=== PATIENT | female | born 1960 | race African-American/Black ===

== ENCOUNTER 2016-10-14 22:19 | Inpatient (IN) ==
[2016-10-14] MEDS ORDERED: ONDANSETRON 4 MG/2 ML VIAL IV PRN (22:37)
[2016-10-14] MEDS ORDERED: HYDROmorphone 2 MG/1 ML VIAL IV PRN (22:37)
--- NOTE | 2016-10-14 22:47 | Emergency Department Note ---
Medhat York Brittany, am scribing for, and in the presence of, Bety Soliman DO 22:39. Jourdan York Debra, DO, personally performed the services described in this documentation, ascribed by Jennifer Meléndez in my presence, and it is both accurate and complete . Arrival - Arrival Chief Complaint: Abdominal / Flank Pain Stated Complaint: small bowel obstruction ED Nursing Triage Note: abd pain, n/v, small bowel obstruction Mode of Arrival: Stretcher Limitations: No Limitations Source: Patient, RN Notes Reviewed Time Seen by Provider: 10/14/16 22:27 - History of Present Illness HPI Narrative: Patient is a 55 y/o black female presenting to the ED by EMS from [facility] for further evaluation of Small Bowel Obstruction. Patient presented to [facility] with c/o generalized abdominal pain that had been ongoing x4 days. She had some associated nausea and vomiting as well, but denies any respiratory distress, chest pain, or fever/chills. Patient reports history of Caesarean section and Hysterectomy. Patient has no other complaint/pain in the ED. Onset (ago): day(s) (4) Consistency: constant Severity: moderate Severity scale (1-10): 6 Quality: aching Allergies/Adverse Reactions: Allergies Allergy/AdvReac Type Severity Reaction Status Date / Time No Known Allergies Allergy Unverified 08/03/16 07:14 Home Medications: Home Medications Medication Instructions Recorded Confirmed Type Amlodipine Besylate 10 mg PO DAILY 07/19/16 08/03/16 History Gabapentin Cap/Tab [Neurontin 300 mg PO BEDTIME 07/19/16 08/03/16 History Cap/Tab] Levothyroxine Tab [Synthroid Tab] 50 mcg PO DAILY 07/19/16 08/03/16 History Lisinopril 20 mg PO DAILY 07/19/16 08/03/16 History Meloxicam [Mobic] 15 mg PO DAILY 07/19/16 08/03/16 History Methotrexate Tab 15 mg PO Q7DAY 07/19/16 08/03/16 History Omeprazole 20 mg PO DAILY 07/19/16 08/03/16 History predniSONE [PredniSONE] 2.5 mg PO DAILY 07/19/16 08/03/16 History Review of System - Review of System 12 point system: reviewed and no additional remarkable complaints except as stated - Review of System Constitutional: Absent: chills, fever Eyes: Absent: vision change Head/Ears/Nose/Throat: Absent: nasal drainage, sore throat Respiratory: Absent: respiratory distress Cardiovascular: Absent: chest pain, palpitations Gastrointestinal: Present: abdominal pain, nausea, vomiting. Absent: diarrhea, constipation Genitourinary female: Absent: dysuria, frequency, urgency Musculoskeletal: Absent: arm pain, back pain, leg pain, neck pain Skin: Absent: rash Neurological: Absent: headache Psychiatric: Absent: anxiety, depression Medical,Surgical,& Family Hx - Medical History Cardio: History of: Hypertension Neurology: History of: Peripheral Neuropathy (FEET) No history of: Seizures HEENT: History of: Eye Problem (GLASSES), Dental Problems (FULL SET) Endocrine: History of: Thyroid Disorder Rheumatology: History of;: Rheumatoid Arthritis Respiratory: History of: Respiratory Problems (FLU VAC-YES; PNEU VAC- YES. ALLERGY AND SINUS DRAINAGE) Gastrointestinal: History of: GERD Hematology: History of: Sickle Cell Disease (TRAIT) - Surgical History HEENT Surgeries: Surgical HX of: Thyroid Surgery (2003) Abdominal Surgeries: Surgical HX of: Colonoscopy (2016) Reproductive Surgeries: Surgical HX of;: Section (X1), Hysterectomy - Social History Smoking Status: Never smoker Frequency of Alcohol Use: None Type of Drug Use: None Exam Vital Signs: Vital Signs Temperature 98 F 10/14/16 22:20 Pulse Rate 88 10/14/16 22:20 Respiratory Rate 16 10/14/16 22:20 Blood Pressure 112/81 10/14/16 22:20 O2 Sat by Pulse Oximetry 99 10/14/16 22:20 - General General appearance: alert, in no apparent distress - Head Head exam: Present: atraumatic, normocephalic, normal inspection - Eye Eye exam: Present: normal appearance, PERRL, EOMI - ENT ENT exam: Present: normal oropharynx, TM's normal bilaterally, other (NG tube present with yellow serous fluid draining) - Neck Neck exam: Present: normal inspection, full ROM, trachea midline - Chest Chest inspection: Present: normal inspection, symmetric chest wall rise - Respiratory Respiratory exam: Present: normal lung sounds bilaterally - Cardiovascular Cardiovascular exam: Present: regular rate, normal rhythm, normal heart sounds - Abdominal Exam Abdominal exam: Present: soft, normal bowel sounds, incision (large incisional scar to the abdomen) - Extremities Exam Extremities exam: Present: normal inspection - Back Exam Back exam: Present: normal inspection - Neurological Exam Neurological exam: Present: alert, oriented X3, CN II-XII intact. Absent: motor sensory deficit - Psychiatric Psychiatric exam: Present: normal affect, normal mood - Skin Skin exam: Present: warm, dry Disposition Clinical Impression: Small bowel obstruction Case discussed with: patient Disposition: Still a Patient Condition: Stable Time of Disposition: 22:47
--- NOTE | 2016-10-14 23:56 | Hospitalist History & Physical ---
Assessment and Plan (1) Thrombocytopenia Status: Acute Assessment and plan: Patient has history of chronic hepatitis C. Could explain the thrombocytopenia. Nothing else to do at this point patient will probably be revised to of counseling for possibility of treatment of hep C if she has not hardly tolerated. That should be done as an outpatient. Current Visit: Yes (2) Microcytic anemia Status: Acute Assessment and plan: I suspect iron deficiency but hereditary spherocytosis can also give you a low the low MCV. Check iron indices. Examined the peripheral smear and CBC. Current Visit: Yes (3) Small bowel obstruction Status: Acute Assessment and plan: All indices are showing that at this point is not a critical issue. Chances that she may have a transition site. Patient has an NG tube will be left to Goo suction. Repeat a KUB in the morning if there is a suggestion of obstruction indefinitely our surgical consultation will take care of it. Surgical consult is put on the chart. Current Visit: Yes History of Present Illness Chief complaint: Abdominal distention with pain especially in the flank on the left side History of present illness: Ms. Paris is a 55 year old female presenting to the ED by EMS from [facility] for further evaluation of Small Bowel Obstruction. Patient presented to [facility] with c/o generalized abdominal pain that had been ongoing x4 days. She had some associated nausea and vomiting as well, but denies any respiratory distress, chest pain, or fever/chills. Patient reports history of Caesarean section and Hysterectomy. She says she has had abdominal obstruction in the past of the subsequent day his gentleman is an removal part of her gut. She did have an ostomy which is since been reversed. She had had a history of hysterectomy as in the past most likely with subsequent adhesae and retroperitoniae. Home Medications Medication Instructions Recorded Confirmed Type Amlodipine Besylate 10 mg PO DAILY 07/19/16 08/03/16 History Gabapentin Cap/Tab [Neurontin 300 mg PO BEDTIME 07/19/16 08/03/16 History Cap/Tab] Levothyroxine Tab [Synthroid Tab] 50 mcg PO DAILY 07/19/16 08/03/16 History Lisinopril 20 mg PO DAILY 07/19/16 08/03/16 History Meloxicam [Mobic] 15 mg PO DAILY 07/19/16 08/03/16 History Methotrexate Tab 15 mg PO Q7DAY 07/19/1608/03/17 History Omeprazole 20 mg PO DAILY 07/19/16 08/03/16 History predniSONE [PredniSONE] 2.5 mg PO DAILY 07/19/16 08/03/16 History Allergies Allergy/AdvReac Type Severity Reaction Status Date / Time No Known Allergies Allergy Unverified 08/03/16 07:14 Medical,Surgical,& Family Hx - Medical History Cardio: History of: Hypertension Neurology: History of: Peripheral Neuropathy (FEET) No history of: Seizures HEENT: History of: Eye Problem (GLASSES), Dental Problems (FULL SET) Endocrine: History of: Thyroid Disorder Rheumatology: History of;: Rheumatoid Arthritis Respiratory: History of: Respiratory Problems (FLU VAC-YES; PNEU VAC- YES. ALLERGY AND SINUS DRAINAGE) Gastrointestinal: History of: GERD Hematology: History of: Sickle Cell Disease (TRAIT) - Surgical History HEENT Surgeries: Surgical HX of: Thyroid Surgery (2003) Abdominal Surgeries: Surgical HX of: Colonoscopy (2017) Reproductive Surgeries: Surgical HX of;: Section (X1), Hysterectomy - Social History Smoking Status: Never smoker Frequency of Alcohol Use: None Type of Drug Use: None Review of systems: 12 point system assessment was done. Scheduled for the chief complaint and past medical history. The encouraging picture that patient is not with a leukocytosis she is not having fevers show no respiratory problems her abdomen is soft she does have an NG tube that should be hoped to continuous low Gomco suctioning. Exam - Constitutional Vitals: Period Temp Pulse Resp BP Sys/Andrade Pulse Ox Last 24 Hr 98 F-98 F 80-88 16-18 107-112/78-81 99-100 General appearance: under weight - Head Head exam: Present: normocephalic, atraumatic - Eye Eye exam: Present: EOMI, other (Anicteric sclera no conjunctival petechia) Pupils: Present: DONELL - ENT ENT exam: Present: normal oropharynx - Neck Neck exam: Present: other (Neck is supple no adenopathy no JVD) - Respiratory Respiratory exam: Present: clear to auscultation bilaterally - Cardiovascular Cardiovascular exam: Present: regular rate and rhythm, other (Patient has a murmur at the base of the heart. She is also telling me that she was sent to [facility] just a few weeks past for coronary angioplasty however this antibiotic because she was having other symptoms we still could not elaborate to me. She does have coronary disease that needs intervention) - GI/Abdominal GI/Abdominal exam: Present: other (Slightly protuberant abdomen with a tenderness infraumbilical in the left lower quadrant and left upper quadrant. She also is tender in the epigastric area.) - Neurological Exam Neurological exam: Present: alert, oriented X3, CN II-XII intact - Psychiatric Psychiatric exam: Present: normal affect, normal mood - Skin Skin exam: Present: normal color, warm, dry Results - Labs Lab Results: I have reviewed the past 24 hour labs (Chronic anemia with thrombocytopenia. Patient is known to have chronic infectious hepatitis C most likely that explains the anemia and thrombocytopenia. Her MCV is low is a possibility iron is also low)
[2016-10-15] MEDS: AMINO ACIDS/DEXT/LYTES 4.25-5% 2,000 ML IV SCH (00:50)
[2016-10-15 05:29] LABS: Eosinophils % 0.5 % (0.00-10.9); Hematocrit 25.2 VOL% (35.7-47.0); Hemoglobin 7.7 GM/DL (12.0-16.0); Lymphocytes % 47.9 % (21.3-54.2); Mean Corpuscular HGB Conc 30.6 GM/DL (32-36); Mean Corpuscular Hemoglobin 24 PG (27-34); Mean Corpuscular Volume 77.8 FL (87-102); Monocytes % 21.9 % (1.7-12.7); Neutrophils % 28.7 % (38.7-73.9); Red Blood Count 3.24 MC/CUMM (3.8-5.5); Red Cell Distribution Width 19.3 % (9.3-17.3); White Blood Count 1.9 T/CUMM (4-12)
[2016-10-15 05:30] LABS: Basophils % 0.5 % (0.0-0.8); Immature Granulocytes % 0.5 %; Immature Granulocytes Absolute 0.01 #; Lymphocytes # 0.9 10*3/uL (1.4-4.0); Monocytes # 0.4 10*3/uL (0.11-0.8); NRBC # 0.02 10*3/uL; Neutrophils # 0.6 10*3/uL (1.4-7.4)
[2016-10-15 05:40] LABS: Platelet Count 72 T/CUMM (130-400)
[2016-10-15 06:11] LABS: Albumin 2.9 G/DL (3.4-5.0); Bilirubin,Total 0.4 MG/DL (0.2-1.0); Calcium 8.3 MG/DL (8.5-10.1); Osmolality,Calculated 283.1 MOS/KG (273-304); Potassium 4.1 MMOL/L (3.5-5.1); Total Protein 6.5 G/DL (6.4-8.3)
[2016-10-15 06:35] LABS: Eosinophils 1 % (0-10); Lymphocytes 64 % (20-55); Total Cells Counted 100
[2016-10-15 06:39] LABS: Microcytosis 2+
[2016-10-15 06:40] LABS: Anisocytosis 2+; Elliptocytes 1+
[2016-10-15 06:41] LABS: Platelet Estimate Decreased; Schistocytes Few
[2016-10-15 06:43] LABS: Segmented Neutrophils 24 % (50-85)
[2016-10-15 06:47] LABS: Atypical Lymphocytes 1+
--- NOTE | 2016-10-15 08:13 | XRay Report ---
XR abdomen 1V Indication: Abdominal pain. Abdomen 2 views: NG tube is present with the tip barely crosses the GE junction. No small bowel dilatation, representing significant improvement from the CT from [facility] yesterday. Stool and gas shown the colon. No evidence of free air. Impression: Recommend advancing NG tube slightly. No evidence of bowel obstruction the current exam. PROCEDURE INTERPRETED AT [facility] DEPARTMENT OF RADIOLOGY Final Report Signed by: Brian Saucedo M.D.
--- NOTE | 2016-10-15 09:22 | General Surgery Consult Note ---
Assessment and Plan - Time spent with patient Time spent with patient: Greater than 30 minutes (1) Small bowel obstruction Status: Acute Assessment and plan: It appears that her small bowel obstruction has already resolved with conservative treatment. We will get her nasogastric tube out today. We will start her on liquids and see how she tolerates this. We will slowly advance her diet if she tolerates it and she may be ready for discharge in the next day or 2. Current Visit: Yes (2) Thrombocytopenia Status: Acute Assessment and plan: I think this is probably a totally separate issue from her bowel obstruction and is probably chronic. Current Visit: Yes History of Present Illness Chief complaint: Bowel obstruction History of present illness: Ms. Paris is a 55 year old female With multiple previous abdominal operations who presented with 3 days of lower abdominal cramping abdominal pain. Pain she described at that time was severe and intermittent. The pain did not radiate. It was associated with nausea and vomiting. She went to the [facility] yesterday where a CT scan of her abdomen was obtained showing small bowel obstruction by report in this suggested a transition point in the left lower quadrant. Since that time she was transferred and admitted in our institution with a nasogastric tube placed. Since her admission she states that all of her abdominal pain is completely resolved. She has had no further nausea or vomiting. She has not had much out of her nasogastric tube. She is now passing flatus and having bowel movements and has no abdominal cramping. Home Medications Medication Instructions Recorded Confirmed Type Amlodipine Besylate 10 mg PO DAILY 07/19/16 10/15/16 History Gabapentin Cap/Tab [Neurontin 300 mg PO BEDTIME 07/19/16 10/15/16 History Cap/Tab] Levothyroxine Tab [Synthroid Tab] 50 mcg PO DAILY 07/19/16 10/15/16 History Lisinopril 20 mg PO DAILY 07/19/16 10/15/16 History Meloxicam [Mobic] 15 mg PO DAILY 07/19/16 10/15/16 History Methotrexate Tab 2.5 mg PO Q7DAY 07/19/16 10/15/16 History Omeprazole 20 mg PO DAILY 07/19/16 10/15/16 History predniSONE [PredniSONE] 2.5 mg PO DAILY 07/19/16 10/15/16 History Cetirizine HCl [ZyrTEC Cap] 10 mg PO DAILY 10/15/16 10/15/16 History Cyproheptadine HCl 4 mg PO BID 10/15/16 10/15/16 History Folic Acid Tab 1 mg PO DAILY 10/15/16 10/15/16 History Allergies Allergy/AdvReac Type Severity Reaction Status Date / Time No Known Allergies Allergy Unverified 08/03/16 07:14 Medical,Surgical,& Family Hx - Medical History Cardio: History of: Hypertension Neurology: History of: Peripheral Neuropathy (FEET) No history of: Seizures HEENT: History of: Eye Problem (GLASSES), Dental Problems (FULL SET) Endocrine: History of: Thyroid Disorder Rheumatology: History of;: Rheumatoid Arthritis Respiratory: History of: Respiratory Problems (FLU VAC-YES; PNEU VAC- YES. ALLERGY AND SINUS DRAINAGE) Gastrointestinal: History of: GERD Hematology: History of: Sickle Cell Disease (TRAIT) - Surgical History HEENT Surgeries: Surgical HX of: Thyroid Surgery (2003) Abdominal Surgeries: Surgical HX of: Abdominal Surgery, Colonoscopy (2016) Reproductive Surgeries: Surgical HX of;: Section (X1), Gynecologic Surgery, Hysterectomy - Family History Family History: noncontributory - Social History Smoking Status: Never smoker Frequency of Alcohol Use: None Type of Drug Use: None - Constitutional Constitutional: Present: anorexia. Absent: chills, fever(s) - EENT Nose, mouth and throat: Absent: dysphagia - Cardiovascular Cardiovascular: Present: dyspnea on exertion. Absent: chest pain at rest, chest pain with activity, dyspnea, syncope - Respiratory Respiratory: Present: dyspnea on exertion. Absent: cough, dyspnea, hemoptysis - Gastrointestinal Gastrointestinal: Present: abdominal pain, cramping, nausea, vomiting. Absent: hematemesis, hematochezia, jaundice - Genitourinary Genitourinary: Absent: hematuria - Musculoskeletal Musculoskeletal: Absent: back pain - Neurological Neurological: Absent: focal weakness, syncope - Endocrine Endocrine: Present: polyuria Hematologic/Lymphatic: Absent: easy bleeding, easy bruising Exam - Constitutional Vitals: Period Temp Pulse Resp BP Sys/Andrade Pulse Ox Last 24 Hr 96.2 F-98.5 F 80-96 16-18 97-112/70-81 99-100 General appearance: no acute distress, under weight - Head Head exam: Present: normocephalic - Eye Eye exam: Absent: scleral icterus - ENT Mouth exam: Present: normal voice - Neck Neck exam: Present: trachea midline. Absent: tenderness - Respiratory Respiratory exam: Present: clear to auscultation bilaterally. Absent: accessory muscle use - Cardiovascular Cardiovascular exam: Present: RRR - GI/Abdominal GI/Abdominal exam: Present: normal bowel sounds, soft. Absent: distended, guarding, mass, tenderness, rebound - Extremities Exam Extremities exam: Absent: edema - Neurological Exam Neurological exam: Present: alert, oriented X3. Absent: motor sensory deficit Speech: Present: normal - Skin Skin exam: Present: normal color Results - Labs CBC & BMP: 10/15/16 04:54 10/15/16 04:54 Lab Results: I have reviewed the past 24 hour labs - Diagnostic Findings Procedure: KUB x-ray: report reviewed by me, CT Abdomen and Pelvis: report reviewed by me
[2016-10-15] MEDS: PANTOPRAZOLE 40 MG VIAL IV SCH (10:21)
[2016-10-15 12:19] LABS: % Iron Saturation 11.9 % (18-50); Ferritin 231.5 ng/ml (8-252)
[2016-10-15 12:25] LABS: Folate 15.4 NG/ML (5.4-24.0)
--- NOTE | 2016-10-15 12:37 | Hospitalist Progress Note ---
Assessment and Plan - Time spent with patient Time spent with patient: Greater than 30 minutes (1) Nausea & vomiting Status: Acute Assessment and plan: We will obtain a right upper quadrant ultrasound to evaluate the gallbladder. Current Visit: Yes (2) Pancytopenia Status: Acute Assessment and plan: Anemia panel reveals low reticulocyte count concerning for poor bone marrow production. She also has probable iron deficiency anemia. Will ask hematology to assess. Current Visit: Yes (3) Hepatitis C Status: Acute Assessment and plan: Obtain RUQ Current Visit: Yes Hospitalist: Subjective Interval history: Transferred with concern for SBO. Had NG tube placed. Currently Reports no abdominal pain, n/v. KUB unremarkable. Exam - Constitutional Vitals: Period Temp Pulse Resp BP Sys/Andrade Pulse Ox Last 24 Hr 96.2 F-98.5 F 80-96 16-19 93-112/66-81 98-100 General appearance: no acute distress - Head Head exam: Present: normocephalic, atraumatic - Eye Eye exam: Present: EOMI Pupils: Present: DONELL - ENT ENT exam: Present: normal exam - Neck Neck exam: Present: normal inspection - Respiratory Respiratory exam: Present: clear to auscultation bilaterally. Absent: rhonchi, wheezes - Cardiovascular Cardiovascular exam: Present: regular rate and rhythm. Absent: gallop, rubs, systolic murmur - GI/Abdominal GI/Abdominal exam: Present: normal bowel sounds, soft. Absent: distended, firm , guarding, tenderness, rebound - Extremities Exam Extremities exam: Present: normal inspection. Absent: calf tenderness, edema Results - Labs CBC & BMP: 10/15/16 04:54 10/15/16 04:54 Lab Results: I have reviewed the past 24 hour labs
--- NOTE | 2016-10-15 13:32 | Ultrasound Report ---
US right upper quadrant Indication: Nausea vomiting and abdominal pain. ULTRASOUND ABDOMEN, limited Comparison: None Findings: Liver: Unremarkable Gallbladder: Multiple mobile gallstones are present. Negative sonographic Chang sign. No pericholecystic fluid or gallbladder wall thickening. Common bile duct: 5 mm Pancreas: Unremarkable Right kidney: 9.0 cm length. No mass, cyst, calcification or obstruction . Right kidney is slightly echogenic throughout. Impression: 1. Calcified cholelithiasis. No secondary findings of cholecystitis. 2. Echogenic renal parenchyma suggesting medical renal disease, not otherwise specified. PROCEDURE INTERPRETED AT [facility] DEPARTMENT OF RADIOLOGY Final Report Signed by: Brian Saucedo M.D.
[2016-10-15] MEDS: ACETAMINOPHEN 325 MG TABLET PO PRN (23:00)
[2016-10-16] MEDS: AMINO ACIDS/DEXT/LYTES 4.25-5% 2,000 ML IV SCH (00:50)
[2016-10-16 00:55] LABS: Apearance,Urine CLEAR (Clear); Bilirubin,Urine Negative (Negative); Blood, Urine Negative (Negative); Glucose,Urine (UA) Negative (Negative); Ketones,Urine Negative (Negative); Mucus,Urine Occasional /LPF (Occasional); Nitrite,Urine Negative (Negative); Protein,Urine Negative; RBC,Urine <1 /HPF (0-4); Squamous Epithelial Cell,Urine Occasional /HPF (0-10); Urine Color Straw (Yellow); Urine Specific Gravity 1.011 (1.001-1.035); Urine Urobilinogen < 2.0 EU/DL (0.2-1.0); WBC,Urine 1 /HPF (0-6)
[2016-10-16] MEDS: PANTOPRAZOLE 40 MG VIAL IV SCH (08:57)
--- NOTE | 2016-10-16 09:24 | Oncology Consult Note ---
History of Present Illness Chief complaint: anemia, thrombocytopenia, leukopenia History of present illness: Ms. Paris is a 55 year old female who I was asked to see her anemia but it actually has thrombocytopenia and leukopenia as well. 1) Thrombocytopenia The platelet count on admission was 72,000 which could accompany any type of liver disease that produces splenomegaly but is also common in hepatitis C. (2) Microcytic anemia Her hemoglobin on admission was 7.7. Her serum iron was low at 23 but she also had a low total iron capacity of 194 which suggests anemia of chronic disease. Her folic acid level was 15.4 with a B12 level of 166. Anemia could be related to hemolysis as well as the hepatitis C and some of her medications. I am ordering a haptoglobin level as well as screening for cryoglobulins and serum protein electrophoresis, serum immunoelectrophoresis and serum free light chain assay. (3)leukopenia: The white cell count on admission was 1900 with an absolute neutrophil count of 600. She is on several medications that could contribute to this and she also has hepatitis C which could be producing it. (4)hepatitis C: She has underlying hepatitis C. Her globulins are elevated at 3.6 and she could easily have cryoglobulinemia since it is commonly associated with hepatitis C. In addition, monoclonal gammopathy is also associated with hepatitis C. I am ordering SPEP, serum immunoelectrophoresis and quantitative immunoglobulins. (5) Small bowel obstruction This was the reason for admission. (6) Sickle trait: This is likely to be contributing to her anemia and if she is stressed significantly, it can even precipitate in acute sickle crisis. She may require transfusion of normal red cells simply to prevent this from occurring. Review of System: The information that follows was obtained from the patient's old chart she is not a good historian. Family history was not obtained with this reason. - Review of System 12 point system: reviewed and no additional remarkable complaints except as stated - Review of System Constitutional: Absent: chills, fever Eyes: Absent: vision change Head/Ears/Nose/Throat: Absent: nasal drainage, sore throat Respiratory: Absent: respiratory distress Cardiovascular: Absent: chest pain, palpitations Gastrointestinal: Present: abdominal pain, nausea, vomiting. Absent: diarrhea, constipation Genitourinary female: Absent: dysuria, frequency, urgency Musculoskeletal: Absent: arm pain, back pain, leg pain, neck pain Skin: Absent: rash Neurological: Absent: headache Psychiatric: Absent: anxiety, depression Medical,Surgical,& Family Hx - Medical History Cardio: History of: Hypertension Neurology: History of: Peripheral Neuropathy (FEET) No history of: Seizures HEENT: History of: Eye Problem (GLASSES), Dental Problems (FULL SET) Endocrine: History of: Thyroid Disorder Rheumatology: History of;: Rheumatoid Arthritis Respiratory: History of: Respiratory Problems (FLU VAC-YES; PNEU VAC- YES. ALLERGY AND SINUS DRAINAGE) Gastrointestinal: History of: GERD Hematology: History of: Sickle Cell Disease (TRAIT) - Surgical History HEENT Surgeries: Surgical HX of: Thyroid Surgery (2004) Abdominal Surgeries: Surgical HX of: Colonoscopy (2017) Reproductive Surgeries: Surgical HX of;: Section (X1), Hysterectomy - Social History Smoking Status: Never smoker Frequency of Alcohol Use: None Type of Drug Use: None Physical examination: General: The patient appears chronically ill and is somewhat lethargic. Eyes: Normal lids and conjunctivae. ENT: Her hearing is normal. Her trachea is midline. She has no neck masses. Her teeth are in poor repair. Lungs: Breath sounds are slightly coarse without rubs, rales or rhonchi. Her chest moves symmetrically with respiration. Cardiovascular: Her heart rhythm is regular with a grade 2/6 systolic ejection murmur heard best in the second right intercostal space adjacent to the sternum. There is no clubbing or cyanosis. Abdomen: No definite ascites or organomegaly. Musculoskeletal: She is weak, emaciated and cachectic with generalized muscle wasting but no focal muscle weakness. Neurologic: Cranial nerves II through XII are intact. There are no obvious focal neurologic deficits. Nodes: I palpate no submandibular, cervical, supraclavicular or axillary adenopathy. Impression: This patient has multifactorial pancytopenia as outlined in the problem list above. I have ordered a few additional blood tests to see if there is anything else we need to be aware off. I will check in on her as needed. Thank you for consulting. Home Medications Medication Instructions Recorded Confirmed Type Amlodipine Besylate 10 mg PO DAILY 07/19/16 10/15/16 History Gabapentin Cap/Tab [Neurontin 300 mg PO BEDTIME 07/19/16 10/15/16 History Cap/Tab] Levothyroxine Tab [Synthroid Tab] 50 mcg PO DAILY 07/19/16 10/15/16 History Lisinopril 20 mg PO DAILY 07/19/16 10/15/16 History Meloxicam [Mobic] 15 mg PO DAILY 07/19/16 10/15/16 History Methotrexate Tab 2.5 mg PO Q7DAY 07/19/16 10/15/16 History Omeprazole 20 mg PO DAILY 07/19/16 10/15/16 History predniSONE [PredniSONE] 2.5 mg PO DAILY 07/19/16 10/15/16 History Cetirizine HCl [ZyrTEC Cap] 10 mg PO DAILY 10/15/16 10/15/16 History Cyproheptadine HCl 4 mg PO BID 10/15/16 10/15/16 History Folic Acid Tab 1 mg PO DAILY 10/15/16 10/15/16 History Allergies Allergy/AdvReac Type Severity Reaction Status Date / Time No Known Allergies Allergy Unverified 08/03/16 07:14 Medical,Surgical,& Family Hx - Medical History Cardio: History of: Hypertension Neurology: History of: Peripheral Neuropathy (FEET) No history of: Seizures HEENT: History of: Eye Problem (GLASSES), Dental Problems (FULL SET) Endocrine: History of: Thyroid Disorder Rheumatology: History of;: Rheumatoid Arthritis Respiratory: History of: Respiratory Problems (FLU VAC-YES; PNEU VAC- YES. ALLERGY AND SINUS DRAINAGE) Gastrointestinal: History of: GERD Hematology: History of: Sickle Cell Disease (TRAIT) - Surgical History HEENT Surgeries: Surgical HX of: Thyroid Surgery (2003) Abdominal Surgeries: Surgical HX of: Abdominal Surgery, Colonoscopy (2016) Reproductive Surgeries: Surgical HX of;: Section (X1), Gynecologic Surgery, Hysterectomy - Social History Smoking Status: Never smoker Frequency of Alcohol Use: None Type of Drug Use: None Exam - Constitutional Vitals: Period Temp Pulse Resp BP Sys/Andrade Pulse Ox Last 24 Hr 98.4 F-102.6 F 68-109 17-20 86-112/65-86 95-100 Results - Labs CBC & BMP: 10/16/16 09:32 10/15/16 04:54
[2016-10-16 09:52] LABS: Eosinophils % 0.4 % (0.00-10.9); Hematocrit 24.4 VOL% (35.7-47.0); Hemoglobin 7.8 GM/DL (12.0-16.0); Immature Granulocytes % 0.7 %; Immature Granulocytes Absolute 0.02 #; Lymphocytes # 1.3 10*3/uL (1.4-4.0); Lymphocytes % 49.3 % (21.3-54.2); Mean Corpuscular Hemoglobin 25 PG (27-34); Mean Corpuscular Volume 77.2 FL (87-102); Monocytes # 0.8 10*3/uL (0.11-0.8); Monocytes % 30.6 % (1.7-12.7); Neutrophils # 0.5 10*3/uL (1.4-7.4); Platelet Count 110 T/CUMM (130-400); Red Blood Count 3.16 MC/CUMM (3.8-5.5); Red Cell Distribution Width 19.5 % (9.3-17.3); White Blood Count 2.7 T/CUMM (4-12)
[2016-10-16 10:36] LABS: Lymphocytes 54 % (20-55); Segmented Neutrophils 22 % (50-85); Total Cells Counted 100
--- NOTE | 2016-10-16 10:36 | Hospitalist Progress Note ---
Assessment and Plan - Time spent with patient Time spent with patient: Greater than 30 minutes (1) Nausea & vomiting Status: Acute Assessment and plan: Resolved. Right upper quadrant unremarkable. Current Visit: Yes (2) Pancytopenia Status: Acute Assessment and plan: Lab values slightly improved today. Hematology is on board appreciate their assistance. Current Visit: Yes (3) Hepatitis C Status: Acute Assessment and plan: Hematology is further working this up. Current Visit: Yes Hospitalist: Subjective Interval history: Patient has no complaints this morning. Exam - Constitutional Vitals: Period Temp Pulse Resp BP Sys/Andrade Pulse Ox Last 24 Hr 98.4 F-102.6 F 68-109 17-20 86-112/65-86 95-100 General appearance: no acute distress - Head Head exam: Present: normocephalic, atraumatic - Eye Eye exam: Present: EOMI Pupils: Present: DONELL - ENT ENT exam: Present: normal exam - Neck Neck exam: Present: normal inspection - Respiratory Respiratory exam: Present: clear to auscultation bilaterally. Absent: rhonchi, wheezes - Cardiovascular Cardiovascular exam: Present: regular rate and rhythm. Absent: gallop, rubs, systolic murmur - GI/Abdominal GI/Abdominal exam: Present: normal bowel sounds, soft. Absent: distended, firm , guarding, tenderness, rebound - Extremities Exam Extremities exam: Present: normal inspection. Absent: calf tenderness, edema Results - Labs CBC & BMP: 10/16/16 09:32 10/15/16 04:54 Lab Results: I have reviewed the past 24 hour labs
[2016-10-16 10:37] LABS: Atypical Lymphocytes Few; Hypochromasia 1+; Microcytosis 2+
[2016-10-16 10:38] LABS: Anisocytosis 2+; Platelet Estimate Decreased
[2016-10-16 10:39] LABS: Elliptocytes Few
--- NOTE | 2016-10-16 10:42 | General Surgery Progress Note ---
Assessment and Plan (1) Small bowel obstruction Status: Acute Assessment and plan: It appears that her small bowel obstruction has already resolved with conservative treatment. We will get her nasogastric tube out today. We will start her on liquids and see how she tolerates this. We will slowly advance her diet if she tolerates it and she may be ready for discharge in the next day or 2. 10/16: She feels much better. She denies abdominal pain or nausea or vomiting cramps or distention. She has had several bowel movements. She is hungry. She is tolerated clear liquids. She is remaining febrile during the night but is afebrile this morning with normal vital signs. Etiology of her fever is unclear to me. It appears that her small bowel obstruction has resolved. I am going to advance her diet. Current Visit: Yes (2) Thrombocytopenia Status: Acute Assessment and plan: I think this is probably a totally separate issue from her bowel obstruction and is probably chronic. Current Visit: Yes Subjective Patient reports: Present: feels better, tolerating liquids well, flatus, bowel movement, fever. Absent: still having pain, nausea, vomiting Exam - Constitutional Vitals: Period Temp Pulse Resp BP Sys/Andrade Pulse Ox Last 24 Hr 98.4 F-102.6 F 68-109 17-20 86-112/65-86 95-100 General appearance: no acute distress - Head Head exam: Present: normocephalic - Eye Eye exam: Absent: scleral icterus - Respiratory Respiratory exam: Absent: accessory muscle use - GI/Abdominal GI/Abdominal exam: Present: soft. Absent: distended, guarding, tenderness, rebound - Neurological Exam Neurological exam: Present: alert, oriented X3 Speech: Present: normal Results - Labs CBC & BMP: 10/16/16 09:32 10/15/16 04:54 Lab Results: I have reviewed the past 24 hour labs
[2016-10-16 11:08] LABS: Immunoglobulin A 488 MG/DL (70-400); Immunoglobulin G 1300 MG/DL (700-1600); Total Protein 6.3 G/DL (6.4-8.3)
[2016-10-16 11:58] LABS: Immunoglobulin M < 21 MG/DL (40-230)
[2016-10-16] MEDS: ACETAMINOPHEN 325 MG TABLET PO PRN ×2 (12:46→21:34)
[2016-10-17 05:42] LABS: Eosinophils % 1.1 % (0.00-10.9); Hemoglobin 7.3 GM/DL (12.0-16.0); Immature Granulocytes % 1.8 %; Immature Granulocytes Absolute 0.05 #; Lymphocytes # 1.4 10*3/uL (1.4-4.0); Lymphocytes % 48.4 % (21.3-54.2); Mean Corpuscular HGB Conc 31.7 GM/DL (32-36); Mean Corpuscular Hemoglobin 24 PG (27-34); Mean Corpuscular Volume 76.9 FL (87-102); Monocytes # 0.8 10*3/uL (0.11-0.8); Monocytes % 28.5 % (1.7-12.7); Neutrophils # 0.6 10*3/uL (1.4-7.4); Neutrophils % 20.2 % (38.7-73.9); Platelet Count 142 T/CUMM (130-400); Red Blood Count 2.99 MC/CUMM (3.8-5.5); Red Cell Distribution Width 19.6 % (9.3-17.3); White Blood Count 2.8 T/CUMM (4-12)
[2016-10-17 05:48] LABS: Immunoglobulin A (Chem) 488 MG/DL (70-400); Immunoglobulin G (Chem) 1300 MG/DL (700-1600); Immunoglobulin M (Chem) < 21 MG/DL (40-230); Total Protein (Chem) 6.3 G/DL (6.4-8.3)
[2016-10-17 06:40] LABS: Lymphocytes 61 % (20-55); Segmented Neutrophils 22 % (50-85); Total Cells Counted 101
[2016-10-17 06:43] LABS: Hypochromasia Slight; Macrocytosis 1+; Platelet Estimate Adequate; Polychromasia Slight
--- NOTE | 2016-10-17 07:33 | Oncology Progress Note ---
Oncology Subjective PN Interval history: 1) Thrombocytopenia The platelet count on admission was 72,000 which could accompany any type of liver disease that produces splenomegaly but is also common in hepatitis C. Her platelet count is actually up to 142,000 today. (2) Microcytic anemia Her hemoglobin on admission was 7.7. Her serum iron was low at 23 but she also had a low total iron capacity of 194 which suggests anemia of chronic disease. Her folic acid level was 15.4 with a B12 level of 166. Anemia could be related to hemolysis as well as the hepatitis C and some of her medications. Her haptoglobin level is 175 which is normal, we are screening for cryoglobulins and serum protein electrophoresis, serum immunoelectrophoresis and serum free light chain assay. Her hemoglobin today is 7.3. (3)leukopenia: The white cell count on admission was 1900 with an absolute neutrophil count of 600. She is on several medications that could contribute to this and she also has hepatitis C which could be producing it. Her white cell count today is 2800 with an absolute neutrophil count 600. (4)hepatitis C: She has underlying hepatitis C. I forgot to ask her if she had been treated for it. Whatever she received, it was given several years ago. She has not had recent treatment. Her globulins are elevated at 3.6 and she could easily have cryoglobulinemia since it is commonly associated with hepatitis C. In addition, monoclonal gammopathy is also associated with hepatitis C. Her immunoglobulins are not completely normal. Her IgG level is normal at 1300. Her IgA level is slightly high at 488 and her IgM level is low at less than 21. (5) Small bowel obstruction This was the reason for admission. (6) Sickle trait: This is likely to be contributing to her anemia and if she is stressed significantly, it can even precipitate in acute sickle crisis. She may require transfusion of normal red cells simply to prevent this from occurring. Exam - Constitutional Vitals: Period Temp Pulse Resp BP Sys/Andrade Pulse Ox Last 24 Hr 98.0 F-100.6 F 80-110 14-19 85-113/56-80 95-98 Results - Labs CBC & BMP: 10/17/16 05:24 10/15/16 04:54
[2016-10-17 07:36] LABS: Albumin (SPE) 3.4 G/DL (3.2-5.3); Albumin (SPE) Rel % 54.1 %; Alpha 1 (SPE) 0.2 G/DL (0.1-0.4); Alpha 1 (SPE) Rel % 3.2 %; Alpha 2 (SPE) 0.7 G/DL (0.4-1.0); Beta (SPE) 0.7 G/DL (0.5-1.1); Beta (SPE) Rel % 11.5 %; Gamma (SPE) 1.3 G/DL (0.7-1.7); Gamma (SPE) Rel % 20.2 %
[2016-10-17] MEDS ORDERED: SODIUM CHLORIDE 0.9% 250 ML IV PRN (08:37)
--- NOTE | 2016-10-17 09:26 | General Surgery Progress Note ---
Assessment and Plan (1) Small bowel obstruction Status: Acute Assessment and plan: It appears that her small bowel obstruction has already resolved with conservative treatment. We will get her nasogastric tube out today. We will start her on liquids and see how she tolerates this. We will slowly advance her diet if she tolerates it and she may be ready for discharge in the next day or 2. 10/16: She feels much better. She denies abdominal pain or nausea or vomiting cramps or distention. She has had several bowel movements. She is hungry. She is tolerated clear liquids. She is remaining febrile during the night but is afebrile this morning with normal vital signs. Etiology of her fever is unclear to me. It appears that her small bowel obstruction has resolved. I am going to advance her diet. 10/17: Her obstructive symptoms have completely resolved. She is tolerating a diet and shows no signs of small bowel obstruction. I will sign off of the case but will be happy to see her back if needed. Current Visit: Yes (2) Thrombocytopenia Status: Acute Assessment and plan: I think this is probably a totally separate issue from her bowel obstruction and is probably chronic. Current Visit: Yes Subjective Patient reports: Present: feels better, tolerating a regular diet, flatus, bowel movement. Absent: still having pain, nausea, vomiting Exam - Constitutional Vitals: Period Temp Pulse Resp BP Sys/Andrade Pulse Ox Last 24 Hr 98.0 F-100.6 F 80-110 14-19 85-113/56-80 95-98 General appearance: no acute distress - Respiratory Respiratory exam: Absent: accessory muscle use - GI/Abdominal GI/Abdominal exam: Present: soft. Absent: distended, tenderness Results - Labs CBC & BMP: 10/17/16 05:24 10/15/16 04:54 Lab Results: I have reviewed the past 24 hour labs
[2016-10-17] MEDS: PANTOPRAZOLE 40 MG VIAL IV SCH (09:56)
--- NOTE | 2016-10-17 10:26 | Hospitalist Progress Note ---
Assessment and Plan - Time spent with patient Time spent with patient: Greater than 30 minutes (1) Neutropenic fever Status: Acute Assessment and plan: We will start cefepime 2 g IV every 8 Current Visit: Yes (2) Nausea & vomiting Status: Acute Assessment and plan: Resolved. Right upper quadrant unremarkable. Current Visit: Yes (3) Pancytopenia Status: Acute Assessment and plan: Lab values slightly improved today. Hematology is on board appreciate their assistance. Current Visit: Yes (4) Hepatitis C Status: Acute Assessment and plan: Hematology is further working this up. Current Visit: Yes Hospitalist: Subjective Interval history: Patient had a temperature 102.6 overnight. She currently has no complaints. Exam - Constitutional Vitals: Period Temp Pulse Resp BP Sys/Andrade Pulse Ox Last 24 Hr 98.0 F-100.6 F 80-110 14-19 85-113/56-80 95-98 General appearance: no acute distress - Head Head exam: Present: normocephalic, atraumatic - Eye Eye exam: Present: EOMI Pupils: Present: DONELL - ENT ENT exam: Present: normal exam - Neck Neck exam: Present: normal inspection - Respiratory Respiratory exam: Present: clear to auscultation bilaterally. Absent: rhonchi, wheezes - Cardiovascular Cardiovascular exam: Present: regular rate and rhythm. Absent: gallop, rubs, systolic murmur - GI/Abdominal GI/Abdominal exam: Present: normal bowel sounds, soft. Absent: distended, firm , guarding, tenderness, rebound - Extremities Exam Extremities exam: Present: normal inspection. Absent: calf tenderness, edema Results - Labs CBC & BMP: 10/17/16 05:24 10/15/16 04:54 Lab Results: I have reviewed the past 24 hour labs
[2016-10-17] MEDS ORDERED: CEFEPIME 2,000 MG in SODIUM CHLORIDE 0.9% 100 ML IV SCH (10:30)
[2016-10-17] MEDS: CEFEPIME 2,000 MG in SODIUM CHLORIDE 0.9% 100 ML IV SCH ×2 (11:11→20:20)
--- NOTE | 2016-10-17 15:30 | XRay Report ---
History: Fever Date: 10/17/2016 Study: Chest x-ray single view portable Comparison exam: July 19, 2016 There is mild cardiomegaly. There is no mediastinal mass. Shallow inspiration. There is no caleb consolidated pneumonia or gross pleural effusion. Osseous structures are unchanged. Impression: Shallow breath. No caleb pneumonia. Stable mild cardiomegaly PROCEDURE INTERPRETED AT [facility] DEPARTMENT OF RADIOLOGY Final Report Signed by: Dr. Marla Ruffin
[2016-10-17] MEDS: ACETAMINOPHEN 325 MG TABLET PO PRN (17:00)
[2016-10-17 17:16] LABS: Apearance,Urine CLEAR (Clear); Bacteria,Urine Occasional /HPF (Few); Bilirubin,Urine Negative (Negative); Blood, Urine Negative (Negative); Glucose,Urine (UA) Negative (Negative); Ketones,Urine Negative (Negative); Nitrite,Urine Negative (Negative); Protein,Urine Negative; Urine Color Straw (Yellow); Urine Specific Gravity 1.005 (1.001-1.035); Urine Urobilinogen < 2.0 EU/DL (0.2-1.0)
[2016-10-18] MEDS: CEFEPIME 2,000 MG in SODIUM CHLORIDE 0.9% 100 ML IV SCH ×2 (02:43→11:58)
--- NOTE | 2016-10-18 07:13 | Oncology Progress Note ---
Oncology Subjective PN Interval history: I do not think I have much more to contribute to this patient's case. However, I would suggest getting gastroenterology to see her to determine whether she has been treated appropriately for hepatitis C. Exam - Constitutional Vitals: Period Temp Pulse Resp BP Sys/Andrade Pulse Ox Last 24 Hr 97.3 F-100.9 F 60-95 16-20 102-148/71-93 91-100 Results - Labs CBC & BMP: 10/17/16 05:24 10/15/16 04:54
[2016-10-18] MEDS: PANTOPRAZOLE 40 MG VIAL IV SCH (09:25)
[2016-10-18 10:01] LABS: Hematocrit 37.7 VOL% (35.7-47.0)
[2016-10-18 10:02] LABS: Hemoglobin 12.6 GM/DL (12.0-16.0)
--- NOTE | 2016-10-18 12:40 | Discharge Summary ---
Hospital Course - Hospital Course Hospital Course: Ms. Paris is a 55-year-old female with a history of hepatitis C, reported cirrhosis, sickle cell trait, rheumatoid arthritis who was transferred from an outside facility for evaluation of possible small bowel obstruction. Patient had an NG tube to suction in place was admitted to the floor. KUB repeated here revealed no evidence of obstruction, NG tube was removed. Patient tolerated her diet well. Given that the patient had some neutropenia and low- grade fever, she was initiated on cefepime during workup. She had a chest x- ray and urinalysis which was unremarkable for infection. Skin exam was unremarkable for cellulitis. Antibiotics were discontinued at discharge. She was noted to have pancytopenia and stool was negative for occult blood. Iron panel revealed low reticulocyte counts low iron and high normal ferritin levels. Anemia was most likely multifactorial. She required 2 units of packed red blood cells. Hematology was consulted and had no further recommendations. This was felt to be secondary to her hepatitis C infection. They recommended the patient follow up with gastroenterology for evaluation of her hepatitis C status. This appointment will be made. By discharge she had met maximum benefit of hospitalization. I spent 37 minutes coordinating this discharge. - Time spent with patient Time with patient DS: Greater than 30 minutes Diagnosis - Discharge Diagnosis (1) Neutropenic fever Status: Acute (2) Nausea & vomiting Status: Acute (3) Pancytopenia Status: Acute (4) Hepatitis C Status: Acute Discharge Plan - Discharge Data Disposition: Disch To Home/Self Care Condition at Discharge: Stable Discharge Diet: advance to your usual diet Activity: resume usual activities as tolerated - Discharge Medications Continue Lisinopril 20 mg PO DAILY Omeprazole 20 mg PO DAILY Methotrexate Tab 2.5 mg PO Q7DAY predniSONE [PredniSONE] 2.5 mg PO DAILY Gabapentin Cap/Tab [Neurontin Cap/Tab] 300 mg PO BEDTIME Amlodipine Besylate 10 mg PO DAILY Cyproheptadine HCl 4 mg PO BID Meloxicam [Mobic] 15 mg PO DAILY Levothyroxine Tab [Synthroid Tab] 50 mcg PO DAILY Cetirizine HCl [ZyrTEC Cap] 10 mg PO DAILY Folic Acid Tab 1 mg PO DAILY - Follow Up or Referral - Forms/Instructions Exam - Constitutional Vitals: Period Temp Pulse Resp BP Sys/Andrade Pulse Ox Last 24 Hr 97.3 F-100.9 F 71-100 16-20 102-148/71-93 91-100 General appearance: normal weight, no acute distress - Head Head exam: Present: normal inspection, normocephalic, atraumatic - Eye Eye exam: Present: EOMI Pupils: Present: DONELL - ENT ENT exam: Present: normal exam - Neck Neck exam: Present: normal inspection - Respiratory Respiratory exam: Present: clear to auscultation bilaterally. Absent: accessory muscle use, prolonged expiratory phase, wheezes - Cardiovascular Cardiovascular exam: Present: regular rate and rhythm. Absent: bradycardia, irregular rhythm, systolic murmur - GI/Abdominal GI/Abdominal exam: Present: normal bowel sounds. Absent: ascites, hypoactive bowel sounds, tenderness - Extremities Exam Extremities exam: Present: normal inspection Discharge Results Procedures and tests throughout hospitalization: Pending Orders 10/15/16 21:00 Occult Blood, Stool Stat 10/15/16 23:32 Blood Culture Routine 10/16/16 09:58 Cryoglobulin, S Routine Labs on day of discharge: Labs from last 24 hours 10/18/16 10/17/16 10/17/16 09:19 Unknown 05:21 Hgb 12.6 D Hct 37.7 Transferrin Urine Color Straw Urine Appearance Clear Urine pH 6.0 Ur Specific [place] 1.005 Urine Protein Negative Urine Glucose (UA) Negative Urine Ketones Negative Urine Blood Negative Urine Nitrate Negative Urine Bilirubin Negative Urine Urobilinogen < 2.0 H Urine Leukocytes Negative Urine Bacteria Occasional Ur Culture Indicated? Not indicated Blood Type O POSITIVE Antibody Screen Positive Antibody Identification Anti-Jkb Crossmatch See Detail 10/15/16 11:35 Hgb Hct Transferrin 160 L Urine Color Urine Appearance Urine pH Ur Specific [place] Urine Protein Urine Glucose (UA) Urine Ketones Urine Blood Urine Nitrate Urine Bilirubin Urine Urobilinogen Urine Leukocytes Urine Bacteria Ur Culture Indicated? Blood Type Antibody Screen Antibody Identification Crossmatch Preliminary micro results at discharge 10/15/16 23:32 Blood Culture - Preliminary Blood No growth at 1 day 10/15/16 23:32 Blood Culture - Preliminary Blood No growth at 1 day DS: Provider Date of admission: 10/14/16 22:37 Primary care physician: . No PCP Attending physician on admission: Teddy Smith MD Consults: 10/14/16 22:37 Consult to Case Mgmt/Social Srvs [CONS] Routine Reason for Case Mgmt/Social Srvs: Discharge Planning 10/15/16 00:03 Consult to Physician [CONS] Routine Comment: On-call physician/small bowel obstruction Consulting Provider: Consult to Specialist Group: Surgery When should Consulting Provider be notified: In am Person Notified: DR NOAH ANN Date Notified: 10/15/16 Time Notified: 08:14 10/15/16 12:32 Consult to Physician [CONS] Routine Comment: pancytopenia, history hep C Consulting Provider: Brian Camacho Consult to Specialist Group: Hematology When should Consulting Provider be notified: Now Person Notified: DR CAMACHO Date Notified: 10/15/16 Time Notified: 14:21 Consult Notification Comment: WILL SEE IN AM 10/18/16 09:09 Consult to Physician [CONS] Routine Comment: D/C today, needs follow up for Hep C treatment Consulting Provider: Michael Ruffin Consulting Provider Notified: Yes When should Consulting Provider be notified: Now Consult to Specialist Group: Gastroenterology When should Consulting Provider be notified: Now Person Notified: Kumar Guevara Date Notified: 10/18/16 Time Notified: 09:28 Discharging clinician: Mahnaz Morocho MD Expected date of discharge: 10/18/16
[2016-10-18 15:43] VITALS: BP 102/78
== END 2016-10-18 16:22 | disposition home or self-care (01) | DRG 389 ==
LOC: EDBD → EDUNIT# → N.ED 22:19 → SUATTDRO 22:37 → N.EDINP 22:37 → N.3E 22:56
PROVIDERS: ADMIT Internal Medicine Infectious Disease; ATTEND Internal Medicine